=== PATIENT | female | born 1990 | race Caucasian/White ===

== ENCOUNTER 2019-05-27 11:58 | Outpatient (CLI) | payer OTHER, SELFPAY | END 2019-05-27 12:45 | disposition home or self-care (01) | LOC: LABOR 12:17 → OB 05-31 14:52 | PROVIDERS: PCP Nurse Practitioner Family | DX: O36.8120 Decreased fetal movements, second trimester, not applicable or unspecified (principal); Z3A.24 24 weeks gestation of pregnancy | CPT/HCPCS: 59025; G0378; G0379 ==

== ENCOUNTER → 2019-06-23 06:56 | Outpatient (CLI) | payer OTHER, SELFPAY ==
[2019-06-23 08:17] LABS: Add Manual Diff / Slide Review NO; Basophils Absolute Auto 0 /uL (0-100); Basophils Percent Auto 0.3 % (0-2); Eosinophils Absolute Auto 100 /uL (0-450); Eosinophils Percent Auto 1.1 % (2-4); Hematocrit 33.3 % (36-46); Hemoglobin 11.5 g/dL (12.0-16.0); Lymphocytes Absolute Auto 1700 /uL (1100-4500); Lymphocytes Percent Auto 16.5 % (25-40); Mean Corpuscular HGB Conc 34.5 % (30-36); Mean Corpuscular Hemoglobin 30.9 PG (26-34); Mean Corpuscular Volume 89.6 fL (80-100); Monocytes Absolute Auto 600 /uL (0-900); Monocytes Percent Auto 6.2 % (3-14); Neutrophils Absolute Auto 8000 /uL (1500-7000); Neutrophils Percent Auto 75.9 % (50-75); Platelet Count 153 X10^3/uL (150-400); Red Blood Cell Count 3.71 X10^6/uL (4.0-5.2); Red Cell Distribution Width 13.9 % (11.6-14.8); White Blood Cell Count 10.5 X10^3/uL (4.5-11.0)
[2019-06-23 08:55] LABS: Glucose Fasting 93 mg/dL (70-100)
[2019-06-23 09:34] LABS: Glucose 1 Hour 150 mg/dL (70-170)
[2019-06-23 14:17] LABS: Glucose Tol Interpretation INTERPRETATION
[2019-06-23 14:26] LABS: Glucose 2 Hour 132 mg/dL (70-140)
== END ==
PROVIDERS: PCP Nurse Practitioner Family; Visit Provider Family Medicine
DX: Z34.92 Encounter for supervision of normal pregnancy, unspecified, second trimester (principal)
CPT/HCPCS: 36415; 82951; 82952; 85025